=== PATIENT | female | born 1970 | race Caucasian/White ===

== ENCOUNTER 2017-07-03 05:46 | Day surgery (SDC) | payer BC ==
[~2017-07-03] VITALS: Ht 157.5 cm; Wt 69.8 kg
[2017-07-03] MEDS ORDERED: CITA20TA5 PO (06:46)
[2017-07-03] MEDS ORDERED: TRAZ100T15 PO (06:46)
[2017-07-03] MEDS ORDERED: HORMONE PO (06:46)
[2017-07-03] MEDS ORDERED: RISP2TAB3 PO (06:46)
[2017-07-03] MEDS ORDERED: EPINEPHRINE TOPICAL SOLN 1 MG/ML, 30ML ONE (06:48)
[2017-07-03] MEDS ORDERED: BACITRACIN OINT 500U/GM, 15 GM ONE (06:48)
[2017-07-03] MEDS ORDERED: FLUORESCEIN OPHTHALMIC 1 MG STRIP ONE (06:49)
[2017-07-03] MEDS ORDERED: EPINEPHRINE 1 MG/ML, 1ML ONE (06:49)
[2017-07-03] MEDS ORDERED: OXYMETAZOLINE NASAL SPRAY 0.05%, 15ML ONE (06:49)
[2017-07-03] MEDS ORDERED: LIDOCAINE 1%, 20ML ONE (06:49)
[2017-07-03 06:52] VITALS: BP 106/66
[2017-07-03 06:58] LABS: HCG UR SG 1.026 (1.003-1.030)
[2017-07-03] MEDS ORDERED: LIDOCAINE-MPF 1%, 2ML ONE (07:10)
[2017-07-03] MEDS ORDERED: FENTANYL PF 250 MCG/5ML ONE (07:18)
[2017-07-03] MEDS ORDERED: MIDAZOLAM 1 MG/ML, 2ML ONE (07:18)
[2017-07-03] MEDS ORDERED: LIDOCAINE GEL 2%, 5ML ONE (07:19)
[2017-07-03] MEDS ORDERED: LACTATED RINGERS 1,000 ML IV SCH (07:27)
[2017-07-03] MEDS ORDERED: LIDOCAINE 1%, 2ML SQ PRN (07:30)
[2017-07-03] MEDS ORDERED: SUCCINYLCHOLINE 20 MG/ML, 10ML ONE (07:34)
[2017-07-03] MEDS ORDERED: ROCURONIUM 10 MG/ML,10ML ONE (07:34)
[2017-07-03] MEDS ORDERED: MEPERIDINE/PF 25MG/0.5ML IVPush PRN (08:00)
[2017-07-03] MEDS ORDERED: ALBUTEROL/IPRATROPIUM 2.5MG/0.5MG, 3 ML NPPB PRN (08:00)
[2017-07-03] MEDS ORDERED: HYDROmorphone 1 MG/ML, 1ML IV PRN (08:00)
[2017-07-03] MEDS ORDERED: ACETAMINOPHEN 325 MG TABLET PO PRN (08:00)
[2017-07-03] MEDS ORDERED: PROMETHAZINE 25 MG/ML, 1ML IV PRN (08:00)
[2017-07-03] MEDS ORDERED: PROMETHAZINE 12.5 MG SUPP PR PRN (08:00)
[2017-07-03] MEDS ORDERED: LABETALOL 5MG/ML, 20ML IV PRN (08:00)
[2017-07-03] MEDS ORDERED: DIAZEPAM 5 MG/ML, 2ML IVPush PRN (08:00)
[2017-07-03] MEDS ORDERED: ONDANSETRON 2MG/ML, 2ML IVPush PRN (08:00)
[2017-07-03] MEDS ORDERED: hydrALAzine 20 MG/ML, 1ML IV PRN (08:00)
[2017-07-03] MEDS ORDERED: MIDAZOLAM 1 MG/ML, 2ML IV PRN (08:00)
[2017-07-03] MEDS ORDERED: OXYcodone 5 MG/5 ML ORAL.SOL UDC PO PRN (08:00)
[2017-07-03] MEDS ORDERED: CEFAZOLIN 1,000 MG ONE (08:44)
[2017-07-03] MEDS ORDERED: PROPOFOL 10 MG/ML, 20ML ONE (08:44)
[2017-07-03] MEDS ORDERED: ONDANSETRON 2MG/ML, 2ML ONE (08:44)
[2017-07-03] MEDS ORDERED: DEXAMETHASONE 4 MG/ML, 1ML ONE (08:44)
[2017-07-03] MEDS ORDERED: FENTANYL PF 100 MCG/2ML ONE (09:11)
[2017-07-03] MEDS ORDERED: ACETAMINOPHEN 650 MG/20.3 ML UDC ONE (09:11)
[2017-07-03] MEDS ORDERED: OXYcodone 5 MG/5 ML ORAL.SOL UDC ONE (09:12)
[2017-07-03] MEDS: FENTANYL PF 100 MCG/2ML IV PRN ×2 (09:24→09:34)
== END 2017-07-03 11:56 ==
LOC: OUT 05:46
PROVIDERS: ATTEND Otolaryngology
DX: J34.2 Deviated nasal septum (principal); J34.3 Hypertrophy of nasal turbinates
CPT/HCPCS: 30140; 30520; 81025; 88300; J0171; J0330; J0690; J1100; J2250; J2405; J2704; J3010; J3490; J7120